=== PATIENT | female | born 1980 | race American Indian/Alaskan Native ===

== ENCOUNTER 2016-08-23 21:09 | Emergency (ER) | payer OTHER ==
[2016-08-23 22:43] LABS: Basophils % (Auto) 0.6 % (0.0-1.8); Hematocrit 38.8 % (30.3-42.9); Hemoglobin 13.1 gm/dl (10.1-14.3); Mean Corpuscular HGB Conc 34 % (30-34); Mean Corpuscular Hemoglobin 32 pg (28-32); Mean Corpuscular Volume 95 fl (79-97); Platelet Count 355 K/mm3 (140-440); Red Blood Count 4.09 M/mm3 (3.65-5.03); Red Cell Distribution Width 13.9 % (13.2-15.2); White Blood Count 7.7 K/mm3 (4.5-11.0)
[2016-08-23 22:54] LABS: Anion Gap 18 mmol/L; BUN/Creatinine Ratio 6.66; Blood Urea Nitrogen 4 mg/dL (7-17); Calcium 8.7 mg/dL (8.4-10.2); Carbon Dioxide 24 mmol/L (22-30); Chloride 99.3 mmol/L (98-107); Glucose 100 mg/dL (65-100); Lipase 103 units/L (13-60); Potassium 3.7 mmol/L (3.6-5.0); Sodium 138 mmol/L (137-145)
--- NOTE | 2016-08-24 01:10 | Emergency Department Report ---
ED N/V/D HPI - General Chief complaint: Nausea/Vomiting/Diarrhea Stated complaint: N/V Time Seen by Provider: 08/24/16 01:08 Source: patient, family Mode of arrival: Ambulatory Limitations: No Limitations - History of Present Illness Initial comments: Patient here reports that she did have a nausea vomiting for 4 days with breast tenderness. She denies any abdominal pain she says she missed her period for 6 months. She says she is usually regular. When asked if she is , she said no. Denies any fever or chills. Denies any vaginal bleeding or discharge. Denies any back pain. Denies any diarrhea. Denies any cough or shortness of breath. MD complaint: nausea, vomiting Onset/Timin -: days(s) Description of Vomiting: watery Associated Abdominal Pain: No Pain Scale: 0 Context: other (possible ) Associated Symptoms: nausea/vomiting. denies: myalgias, chest pain, cough, diaphoresis, fever/chills, headaches, loss of appetite, malaise, rash, dysuria, shortness of breath, syncope, weakness - Related Data Previous Rx's Medication Instructions Recorded Last Taken Type Prednisone 10 mg PO QDAY #20 tablet 04/29/14 Unknown Rx Azithromycin [Zithromax Z-LAINE] 250 mg PO DAILY #6 tablet 09/17/14 Unknown Rx Benzonatate [Tessalon Perles] 200 mg PO Q8HR #20 capsule 09/17/14 Unknown Rx Ibuprofen [Motrin] 800 mg PO Q8H PRN #30 tablet 09/17/14 Unknown Rx Prednisone [Prednisone 10 mg 10 mg PO .TAPER #1 tab.ds.pk 09/17/14 Unknown Rx (6-Day Pack, 21 Tabs)] Promethazine /Codeine 5 ml PO Q6H PRN #120 udc 09/17/14 Unknown Rx [Phenergan/Codeine 6.25-10 mg/5 ml] Gentamicin 0.3% Ophth Soln 2 drops OP Q4H #1 bottle 10/19/14 Unknown Rx Ibuprofen [Motrin] 800 mg PO Q8H PRN #60 tablet 10/19/14 Unknown Rx traMADol [Ultram] 50 mg PO Q6HR PRN #14 tablet 10/19/14 Unknown Rx Ondansetron [Zofran Odt] 4 mg PO Q8H PRN #15 tab.rapdis 08/24/16 Unknown Rx Vit No.130/Iron/FA 1 each PO QDAY #30 tablet 08/24/16 Unknown Rx [ Tablet] Allergies Allergy/AdvReac Type Severity Reaction Status Date / Time No Known Allergies Allergy Verified 09/17/14 10:32 ED Review of Systems ROS: Stated complaint: N/V Other details as noted in HPI Comment: All other systems reviewed and negative Constitutional: denies: chills, fever Eyes: denies: eye discharge ENT: denies: throat pain, congestion Respiratory: no symptoms reported Cardiovascular: denies: chest pain, palpitations, edema, syncope Gastrointestinal: nausea, vomiting. denies: abdominal pain, diarrhea Genitourinary: denies: urgency, dysuria, frequency, hematuria, discharge Musculoskeletal: denies: back pain, arthralgia Skin: denies: rash Neurological: denies: headache, weakness, numbness, paresthesias, confusion, abnormal gait, vertigo ED Past Medical Hx - Past Medical History Previous Medical History?: Yes Hx Hypertension: No Hx Congestive Heart Failure: No Hx Diabetes: No Hx Deep Vein Thrombosis: No Hx Renal Disease: No Hx Sickle Cell Disease: No Hx Seizures: No Hx Asthma: No Hx COPD: No Hx HIV: No Additional medical history: Eye irritation right eye due to wearing contacts, Vaginal delivery x 2 - Surgical History Past Surgical History?: Yes Additional Surgical History: 2 - Family History Family history: no significant - Social History Smoking Status: Current Every Day Smoker Substance Use Type: None - Medications Home Medications: Home Medications Medication Instructions Recorded Confirmed Last Taken Type Prednisone 10 mg PO QDAY #20 tablet 04/29/14 Unknown Rx Azithromycin [Zithromax Z-LAINE] 250 mg PO DAILY #6 tablet 09/17/14 Unknown Rx Benzonatate [Tessalon Perles] 200 mg PO Q8HR #20 capsule 09/17/14 Unknown Rx Ibuprofen [Motrin] 800 mg PO Q8H PRN #30 tablet 09/17/14 Unknown Rx Prednisone [Prednisone 10 mg 10 mg PO .TAPER #1 tab.ds.pk 09/17/14 Unknown Rx (6-Day Pack, 21 Tabs)] Promethazine /Codeine 5 ml PO Q6H PRN #120 udc 09/17/14 Unknown Rx [Phenergan/Codeine 6.25-10 mg/5 ml] Gentamicin 0.3% Ophth Soln 2 drops OP Q4H #1 bottle 10/19/14 Unknown Rx Ibuprofen [Motrin] 800 mg PO Q8H PRN #60 tablet 10/19/14 Unknown Rx traMADol [Ultram] 50 mg PO Q6HR PRN #14 tablet 10/19/14 Unknown Rx Ondansetron [Zofran Odt] 4 mg PO Q8H PRN #15 tab.rapdis 08/24/16 Unknown Rx Vit No.130/Iron/FA 1 each PO QDAY #30 tablet 08/24/16 Unknown Rx [ Tablet] ED Physical Exam - General Limitations: No Limitations General appearance: alert, in no apparent distress - Head Head exam: Present: atraumatic, normocephalic, normal inspection - Eye Eye exam: Present: normal appearance, PERRL, EOMI. Absent: periorbital swelling , periorbital tenderness Pupils: Present: normal accommodation - ENT ENT exam: Present: normal exam, normal orophraynx, mucous membranes dry, TM's normal bilaterally, normal external ear exam - Neck Neck exam: Present: normal inspection, full ROM. Absent: tenderness, lymphadenopathy - Respiratory Respiratory exam: Present: normal lung sounds bilaterally. Absent: respiratory distress, chest wall tenderness - Cardiovascular Cardiovascular Exam: Present: regular rate, normal rhythm, normal heart sounds - GI/Abdominal GI/Abdominal exam: Present: soft, normal bowel sounds. Absent: distended, tenderness, guarding, rebound, rigid - Extremities Exam Extremities exam: Present: normal inspection, full ROM, normal capillary refill. Absent: tenderness, pedal edema, joint swelling, calf tenderness - Back Exam Back exam: Present: normal inspection, full ROM. Absent: tenderness, CVA tenderness (R), CVA tenderness (L), muscle spasm, paraspinal tenderness, vertebral tenderness, rash noted - Neurological Exam Neurological exam: Present: alert, oriented X3, normal gait, reflexes normal. Absent: motor sensory deficit - Psychiatric Psychiatric exam: Present: normal affect, normal mood - Skin Skin exam: Present: warm, dry, intact, normal color. Absent: rash ED Course Vital Signs 08/23/16 08/24/16 21:54 03:51 Temperature 98.2 F 98.1 F Pulse Rate 60 60 Respiratory 12 18 Rate Blood Pressure 106/60 Blood Pressure 112/67 [Right] O2 Sat by Pulse 100 99 Oximetry - Reevaluation(s) Reevaluation #1: 08/24/16 03:04 Patient here for nausea vomiting 4 days she was given 1 L of IV fluid and 4 mg Zofran IV and she reports that she is feeling better. She is able to tolerate by mouth liquids. ED Medical Decision Making - Lab Data Result diagrams: 08/23/16 22:16 08/23/16 22:16 Lab Results 08/23/16 08/23/16 08/23/16 Range/Units 22:16 22:16 23:45 WBC 7.7 (4.5-11.0) K/mm3 RBC 4.09 (3.65-5.03) M/mm3 Hgb 13.1 (10.1-14.3) gm/dl Hct 38.8 (30.3-42.9) % MCV 95 (79-97) fl MCH 32 (28-32) pg MCHC 34 (30-34) % RDW 13.9 (13.2-15.2) % Plt Count 355 (140-440) K/mm3 Lymph % (Auto) 29.0 (13.4-35.0) % Addison % (Auto) 10.6 H (0.0-7.3) % Eos % (Auto) 1.0 (0.0-4.3) % Baso % (Auto) 0.6 (0.0-1.8) % Lymph # 2.2 (1.2-5.4) K/mm3 Addison # 0.8 (0.0-0.8) K/mm3 Eos # 0.1 (0.0-0.4) K/mm3 Baso # 0.0 (0.0-0.1) K/mm3 Seg Neutrophils % 58.8 (40.0-70.0) % Seg Neutrophils # 4.6 (1.8-7.7) K/mm3 Sodium 138 (137-145) mmol/L Potassium 3.7 (3.6-5.0) mmol/L Chloride 99.3 (98-107) mmol/L Carbon Dioxide 24 (22-30) mmol/L Anion Gap 18 mmol/L BUN 4 L (7-17) mg/dL Creatinine 0.6 L (0.7-1.2) mg/dL Estimated GFR > 60 ml/min BUN/Creatinine Ratio 6.66 % Glucose 100 (65-100) mg/dL Calcium 8.7 (8.4-10.2) mg/dL Lipase 103 H (13-60) units/L HCG, Quant (0-4) mIU/mL Urine Color Yellow (Yellow) Urine Turbidity Clear (Clear) Urine pH 6.0 (5.0-7.0) Ur Specific [place] 1.028 (1.003-1.030) Urine Protein 30 mg/dl (Negative) mg/dL Urine Glucose (UA) Neg (Negative) mg/dL Urine Ketones 20 (Negative) mg/dL Urine Blood Neg (Negative) Urine Nitrite Neg (Negative) Ur Reducing Substances Not Reportable Urine Bilirubin Neg (Negative) Urine Ictotest Not Reportable Urine Urobilinogen 2.0 (<2.0) mg/dL Ur Leukocyte Esterase Neg (Negative) Urine WBC (Auto) 1.0 (0.0-6.0) /HPF Urine RBC (Auto) 2.0 (0.0-6.0) /HPF U Epithel Cells (Auto) 11.0 (0-13.0) /HPF Urine Bacteria (Auto) 1+ (Negative) /HPF Urine Mucus 3+ /HPF Urine HCG, Qual Positive A (Negative) 08/24/16 Range/Units 01:48 WBC (4.5-11.0) K/mm3 RBC (3.65-5.03) M/mm3 Hgb (10.1-14.3) gm/dl Hct (30.3-42.9) % MCV (79-97) fl MCH (28-32) pg MCHC (30-34) % RDW (13.2-15.2) % Plt Count (140-440) K/mm3 Lymph % (Auto) (13.4-35.0) % Addison % (Auto) (0.0-7.3) % Eos % (Auto) (0.0-4.3) % Baso % (Auto) (0.0-1.8) % Lymph # (1.2-5.4) K/mm3 Addison # (0.0-0.8) K/mm3 Eos # (0.0-0.4) K/mm3 Baso # (0.0-0.1) K/mm3 Seg Neutrophils % (40.0-70.0) % Seg Neutrophils # (1.8-7.7) K/mm3 Sodium (137-145) mmol/L Potassium (3.6-5.0) mmol/L Chloride (98-107) mmol/L Carbon Dioxide (22-30) mmol/L Anion Gap mmol/L BUN (7-17) mg/dL Creatinine (0.7-1.2) mg/dL Estimated GFR ml/min BUN/Creatinine Ratio % Glucose (65-100) mg/dL Calcium (8.4-10.2) mg/dL Lipase (13-60) units/L HCG, Quant 72400 H (0-4) mIU/mL Urine Color (Yellow) Urine Turbidity (Clear) Urine pH (5.0-7.0) Ur Specific [place] (1.003-1.030) Urine Protein (Negative) mg/dL Urine Glucose (UA) (Negative) mg/dL Urine Ketones (Negative) mg/dL Urine Blood (Negative) Urine Nitrite (Negative) Ur Reducing Substances Urine Bilirubin (Negative) Urine Ictotest Urine Urobilinogen (<2.0) mg/dL Ur Leukocyte Esterase (Negative) Urine WBC (Auto) (0.0-6.0) /HPF Urine RBC (Auto) (0.0-6.0) /HPF U Epithel Cells (Auto) (0-13.0) /HPF Urine Bacteria (Auto) (Negative) /HPF Urine Mucus /HPF Urine HCG, Qual (Negative) - Medical Decision Making I collaborated with Dr. ROSEN patient presentation, clinical and laboratory findings. The patient has protein in her urine. Patient however asymptomatic proteinuria in early . ED course: Patient with nausea and vomiting that is controlled with antiemetic, , proteinuria she has 30 mg/dL of protein in her urine. Blood pressure is stable and she is not having any swelling. She also has ketones in her urine which suggests dehydration so she got 1 L of IV fluid. Status post IV fluid and antiemetic patient says she felt better. She given normal saline 1 L IV and Zofran 4 mg IV. She denies any abdominal pain throughout her stay, vaginal bleeding or discharge. Her serum hCG at 8-10 weeks gestation. Patient will be discharged home with prescription for Zofran and vitamin and to follow up with [facility]. She said that she understands discharge diagnosis and treatment plan. I gave her information about her lab results and told her that she is dehydrated so she is to drink plenty of fluid and also that she has some protein in her urine so she becomes swollen and her blood pressure is elevated she needs to return to emergency room [facility]. Patient presentation she is aware that Critical care attestation.: If time is entered above; I have spent that time in minutes in the direct care of this critically ill patient, excluding procedure time. ED Disposition Clinical Impression: related condition in first trimester, Nausea and vomiting during , Proteinuria during , Dehydration Disposition: DISCHARGED TO HOME OR SELFCARE Is pt being admited?: No Does the pt Need Aspirin: No Condition: Stable Instructions: (ED), Dehydration (ED), Acute Nausea and Vomiting (ED) Additional Instructions: You have protein in the urine C have to have a repeat urinalysis done to monitor protein (negative urine. Swelling to extremities, face, neck, shortness of breath, elevated blood pressure please return to the emergency room [facility]. Your urine results shows that you are dehydrated so he will need to drink plenty for at least 2-3 L per day. Takes Zofran and 30 minutes prior to eating this will help with nausea. Please follow-up with [facility] refer to. Please see discharge instruction please start taking vitamin paperwork for phone number and address and call in the morning to schedule appointment. Please start taking vitamin Prescriptions: Ondansetron [Zofran Odt] 4 mg PO Q8H PRN #15 tab.rapdis PRN Reason: Nausea And Vomiting Vit No.130/Iron/FA [ Tablet] 1 each PO QDAY #30 tablet Referrals: ANDERSON SRINIVASAN MD [Staff Physician] - 08/26/16 [facility] [Outside] - 08/26/16 Forms: Work/School Release Form(ED)
[2016-08-24 01:36] LABS: Bacteria,Urine 1+ /HPF (Negative); Bilirubin,Urine NEG (Negative); Blood,Urine NEG (Negative); Ketones,Urine 20 mg/dL (Negative); Leukocyte Esterase,Urine NEG (Negative); Mucus,Urine 3+ /HPF; Nitrite,Urine NEG (Negative)
[2016-08-24] MEDS: NACL 0.9% 1000 ML 1,000 ML IV ONE (02:01)
[2016-08-24] MEDS: ZOFRAN IV ONE (02:01)
[2016-08-24 03:52] VITALS: BP 112/67
== END 2016-08-24 03:53 | disposition home or self-care (01) ==
LOC: ED 21:09
DX: O21.0 Mild hyperemesis gravidarum (principal); O12.11 Gestational proteinuria, first trimester; E86.0 Dehydration; Z3A.01 Less than 8 weeks gestation of pregnancy; O99.331 Smoking (tobacco) complicating pregnancy, first trimester
CPT/HCPCS: 36415; 80048; 81001; 81025; 82010; 83690; 84702; 85025; 96361; 96374; 99283; J2405; J7030

== ENCOUNTER 2016-11-10 11:34 | Emergency (ER) | payer OTHER, MEDICAID ==
[2016-11-10] MEDS ORDERED: TYLENOL PO ONE (12:26)
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
--- NOTE | 2016-11-10 13:39 | Ultrasound Report ---
Gestation: Single Position: breech Amniotic Fluid: AMANUEL = WNL cm Placenta: post Placental Grade: 0 Heart Rate: 135 BPM Cervical length: 3.4 cm (Normal > 3 cm) x It is too early for a anatomical survey The following are not demonstrated due to maternal body habitus or lie: BPD: 3.9 cm = 17 w 5 d HC: 14.8 cm = 17 w 6 d AC: 12.2 cm = 17 w 6 d FL: 2.6 cm = 17 w 6 d HC/AC Ratio: 1.2 Cephalic Index: Estimated Weight: grams LMP: Clinical age = 17 w 6 d EDC: 04/14/17 US Gest. Age = 17 w 6 d EDC: 04/14/17
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
[2016-11-10 14:43] VITALS: BP 114/73
== END 2016-11-10 14:42 | disposition home or self-care (01) ==
LOC: ED 11:34
DX: O26.892 Other specified pregnancy related conditions, second trimester (principal); M79.621 Pain in right upper arm; M62.838 Other muscle spasm; Z3A.18 18 weeks gestation of pregnancy; Z88.0 Allergy status to penicillin
CPT/HCPCS: 76805

== ENCOUNTER 2016-12-17 12:07 | Emergency (ER) | payer MEDICAID, OTHER ==
[2016-12-17 14:05] VITALS: BP 109/70
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
== END 2016-12-17 17:30 | disposition left against medical advice (07) ==
LOC: ED 12:07
DX: M79.631 Pain in right forearm (principal); Z53.21 Procedure and treatment not carried out due to patient leaving prior to being seen by health care provider